=== PATIENT | male | born 1995 | race Caucasian/White ===

== ENCOUNTER 2018-05-20 20:19 | Emergency (ER) | payer SELFPAY, OTHER ==
[2018-05-21] MEDS ORDERED: BACITRACIN 0.9 GM OINT (00:23)
[2018-05-21] MEDS: NEOMYC/POLYMYX/BACIT 30 GM OINT TOP (00:40)
[2018-05-21] MEDS: DIPHTH/TET/ACEL PERTUSS (ADULT) 0.5 ML VIAL IM* (01:03)
== END 2018-05-21 01:12 | disposition home or self-care (01) ==
LOC: FTE 20:19
DX: S90.512A Abrasion, left ankle, initial encounter (principal); R40.2252 Coma scale, best verbal response, oriented, at arrival to emergency department; R40.2362 Coma scale, best motor response, obeys commands, at arrival to emergency department; R40.2142 Coma scale, eyes open, spontaneous, at arrival to emergency department; S50.812A Abrasion of left forearm, initial encounter; S80.212A Abrasion, left knee, initial encounter; V28.9XXA Unspecified motorcycle rider injured in noncollision transport accident in traffic accident, initial encounter; Z23 Encounter for immunization; Z48.01 Encounter for change or removal of surgical wound dressing
CPT/HCPCS: 90471; 90715; 99283

== ENCOUNTER 2018-05-26 14:10 | Emergency (ER) | payer MEDICAID | END 2018-05-26 17:57 | disposition home or self-care (01) | LOC: FTE 14:10 | DX: S90.812A Abrasion, left foot, initial encounter (principal); L08.89 Other specified local infections of the skin and subcutaneous tissue; X58.XXXA Exposure to other specified factors, initial encounter | CPT/HCPCS: 99283; L3260 ==